=== PATIENT | female | born 1955 | race Caucasian/White ===

== ENCOUNTER 2024-11-22 16:13 | Emergency (ER) | payer MEDICARE, OTHER, SELFPAY ==
[2024-11-22 16:15] VITALS: BP 161/88
--- NOTE | 2024-11-22 16:49 | ED.GENMED ---
History of Present Illness
<Radha Harrell MD, Resident - Last Filed: 11/22/24 18:55>
General
Chief Complaint: Musculo-Skeletal Complaint
Time Seen by Provider: 11/22/24 16:29
History of Present Illness
History of Present Illness:
This is a 69-year-old female who presents to the ED complaining of left hip started yesterday. Patient denies any injury, trauma. She reports she was going about a day when she noticed left hip pain. She reports pain continued to worsen prompting
her to come to the ED for evaluation today. Patient with a history of cervical fusion with plates and history of 2 closed reduction of the left femur secondary to trauma few years ago. She reports she is currently in physical therapy for ongoing
bilateral knee pain. She reports she had physical therapy done 2 days ago without any major/minor events during therapy session. She reports she has to ambulate with a cane due to the pain although prior to this, she was not using any assistive
device. States she can bear minimal weight on her left extremity.
Past History
<Radha Harrell MD, Resident - Last Filed: 11/22/24 18:55>
Past History
ED Past Medical History: Asthma and Other (History of C3-C4 cervical fusion with plate insertion, osteoarthritis)
ED Past Surgical History: Other (Close reductions in left femoral x 2, arthroscopic bilateral knees)
Phy Exam
<Radha Harrell MD, Resident - Last Filed: 11/22/24 18:55>
General Physical Exam
General Presentation: well appearing and no apparent distress
Cardiovascular Exam
Cardiovascular Exam: regular rate/rhythm and no edema
Pulmonary Exam
Pulmonary Exam: lungs clear and no respiratory distress
Musculoskeletal Exam
Musculoskeletal Exam: other (On inspection, no visible deformity or swelling of left leg. Left leg appears normal with no shortening or external rotation. Limited weightbearing due to pain. 5/5 muscular strength right leg, 4/5 muscular strength
left leg.)
Course
<Radha Harrell MD, Resident - Last Filed: 11/22/24 18:55>
Orders/Labs/Results
Orders:
Orders
11/22/24 17:01
CR Hip - LT w/wo Pel 2-3 Vw* Urgent
Comment:
Reason For Exam: left hip pain
Include a pelvis x-ray?: No
11/22/24 17:08
Ketorolac [Toradol] 30 mg IM NOW STA
Vital Signs
Initial and Last Documented VS:
Initial Vital Signs
Temp Pulse Resp BP Pulse Ox
98.0 F 98 16 161/88 96
11/22/24 16:15 11/22/24 16:15 11/22/24 16:15 11/22/24 16:15 11/22/24 16:15
Last Documented Vital Signs
Temp Pulse Resp BP Pulse Ox
98.0 F 98 16 161/88 96
11/22/24 16:15 11/22/24 16:15 11/22/24 16:15 11/22/24 16:15 11/22/24 16:15
<Burke Urias MD - Last Filed: 11/22/24 17:28>
Orders/Labs/Results
Orders:
Orders
11/22/24 17:01
CR Hip - LT w/wo Pel 2-3 Vw* Urgent
Comment:
Reason For Exam: left hip pain
Include a pelvis x-ray?: No
11/22/24 17:08
Ketorolac [Toradol] 30 mg IM NOW STA
Vital Signs
Initial and Last Documented VS:
Initial Vital Signs
Temp Pulse Resp BP Pulse Ox
98.0 F 98 16 161/88 96
11/22/24 16:15 11/22/24 16:15 11/22/24 16:15 11/22/24 16:15 11/22/24 16:15
Last Documented Vital Signs
Temp Pulse Resp BP Pulse Ox
98.0 F 98 16 161/88 96
11/22/24 16:15 11/22/24 16:15 11/22/24 16:15 11/22/24 16:15 11/22/24 16:15
<Radha Harrell MD, Resident - Last Filed: 11/22/24 18:55>
MDM/Problems Addressed
MDM/Problems Addressed:
69-year-old female with past medical history of close reduction of left elbow secondary to trauma, osteoarthritis, cervical fusion with plates presents to the ER complaining of left hip pain that started yesterday. Denies any injury, denies trauma.
On examination of left leg, no visible deformity or swelling. No shortening or external rotation. Limited weightbearing due to pain. Mild tenderness to palpation over the greater trochanter.. Will evaluate with an x-ray of the hip. Etiology
likely bursitis versus tendinitis. One-time dose of Toradol for pain.
Updates; x-ray with no findings to confirm recent cortical fracture. Degenerative changes seen on x-ray. Continue on pain medication as prescribed by your PCP, will give orthopedics information for outpatient follow-up
<Radha Harrell MD, Resident - Last Filed: 11/22/24 18:55>
*Critical Care Note
Total Time (30-74mins, 75-104mins- exclusive of procedures): Not Applicable
ED Attending Note
<Radha Harrell MD, Resident - Last Filed: 11/22/24 18:55>
-
Portions of this chart may have been created with voice recognition software.� Occasional wrong word or��sound alike� substitutions may have occurred due to the inherent limitations of voice recognition software.
<Burke Urias MD - Last Filed: 11/22/24 17:28>
ED Attending Note
Patient seen and examined by attending physician: Yes
I performed a history and physical exam of patient and discussed management with resident, I reviewed resident's note and agree with documented findings and plan of care.: Yes
ED Attending Note:
69-year-old female nontraumatic left hip pain. Started this morning. Progressive. No fever chills rash unusual back pain numbness tingling or weakness to the leg. Patient has been doing PT for her knee and back. Also lifting her grandchild.
On exam patient is nontoxic in no distress. Abdomen is nontender. She is warm and dry. Perfusing well. No unusual leg swelling warmth or erythema. No cord. Good pulses and color. No pain with minimal hip rotation or flexion tenderness over
the greater trochanter. No warmth or erythema. No spinal tenderness.
Impression is nontraumatic pain left hip. Likely bursitis/tendinitis. I do not feel there is any infectious concern or vascular concern. X-ray pain management follow-up
Discharge Plan
Departure
Patient Disposition: Home (Routine Discharge)
Date of Disposition: 11/22/24
Time of Disposition: 18:05
Patient with high blood pressure during this ER visit?: Yes
Discharge Problem:
Acute pain of left hip
Referrals:
Keron Roberts MD [Active] -
Activity Restrictions/Additional Instructions:
Please return for any worsening symptoms.
You may return at any time if you have further concerns.
Please follow up with your PCP at the first available appointment, preferably this week.
Information to the orthopedics has been added to your discharge paperwork. Please follow-up with them.
Continue your home pain medication as prescribed by your PCP.
Thank you for choosing [facility].
Interventions
Interventions:
*Risk Screen - Suicide Last Done: 11/22/24 16:15
*General Assessment Last Done: 11/22/24 16:28
*Neglect/Abuse Screening Last Done: 11/22/24 16:15
*ED- Fall Risk Assessment Last Done: 11/22/24 16:28
*ED COVID-19 Vaccine History Last Done: 11/22/24 16:15
*Nursing Disposition Last Done: 11/22/24 18:15
ED-Musculoskeletal Assessment Last Done: 11/22/24 16:28
Discharge Date and Time
Discharge Date/Time: 11/22/24 18:15
Print Language: ALBANIAN
[2024-11-22] MEDS: TORADOL 30 MG IM (17:19)
== END 2024-11-22 18:15 | disposition home or self-care (01) ==
LOC: EMR 16:13
PROVIDERS: EMERGENCY PHYSICIAN Emergency Medicine
DX: M25.552 Pain in left hip (principal); M25.561 Pain in right knee; M25.562 Pain in left knee; R26.89 Other abnormalities of gait and mobility; R03.0 Elevated blood-pressure reading, without diagnosis of hypertension; J45.909 Unspecified asthma, uncomplicated; M19.90 Unspecified osteoarthritis, unspecified site; M43.22 Fusion of spine, cervical region; Z88.5 Allergy status to narcotic agent; Z88.8 Allergy status to other drugs, medicaments and biological substances
CPT/HCPCS: 99284; 96372; 73502